=== PATIENT | female | born 1955 | race Caucasian/White ===

== ENCOUNTER 2016-09-23 00:27 | Emergency (ER) | payer MEDICAID ==
[2016-09-23] MEDS ORDERED: ONDANSETRON 4 MG TAB.RAPDIS PO ONE (02:27)
[2016-09-23] MEDS ORDERED: PREDNISONE 20 MG TABLET PO ONE (02:27)
[2016-09-23] MEDS ORDERED: MORPHINE SULFATE 10 MG/ML INJ IM ONE (02:27)
--- NOTE | 2016-09-23 02:31 | ER Document Report ---
ED Neck/Back Problem - General Chief Complaint: Back Injury Stated Complaint: BACK PAIN Time Seen by Provider: 09/23/16 02:12 Notes: Patient is a 60-year-old female comes emergency department for chief complaint of pain in her back, she states that 2 days ago she stepped wrong and felt a pull and she has had increasing sharp pains in her lower back with radiation mainly down her right leg and occasionally down the left. She has a known history of spinal stenosis, herniated disks, she has had a previous MRI. She takes no pain medications, she does not have diabetes, she denies any immunocompromised condition. She denies any IV drug abuse, any fever, she denies any bowel or bladder incontinence, she denies inability to urinate, she denies any impact injury. TRAVEL OUTSIDE OF THE [place] IN LAST 30 DAYS: No - Related Data Allergies/Adverse Reactions: No Known Allergies Allergy (Verified 09/19/12 10:53) Past Medical History - General Information source: Patient - Social History Smoking Status: Never Smoker Drug Abuse: None Lives with: Family Family History: Reviewed & Not Pertinent Patient has suicidal ideation: No Patient has homicidal ideation: No - Past Medical History Cardiac Medical History: Reports: Hx Hypertension Denies: Hx Coronary Artery Disease, Hx Heart Attack Pulmonary Medical History: Denies: Hx Asthma, Hx Bronchitis, Hx COPD, Hx Pneumonia Neurological Medical History: Denies: Hx Cerebrovascular Accident, Hx Seizures Renal/ Medical History: Denies: Hx Peritoneal Dialysis Musculoskeltal Medical History: Reports Hx Arthritis - Back and Knees Surgical Hx: Negative Past Surgical History: Denies: Hx Hysterectomy - Immunizations Hx Diphtheria, Pertussis, Tetanus Vaccination: Yes Review of Systems - Review of Systems Constitutional: No symptoms reported EENT: No symptoms reported Cardiovascular: No symptoms reported Respiratory: No symptoms reported Gastrointestinal: No symptoms reported Genitourinary: No symptoms reported Female Genitourinary: No symptoms reported Musculoskeletal: See HPI Skin: No symptoms reported Hematologic/Lymphatic: No symptoms reported Neurological/Psychological: No symptoms reported Physical Exam - Vital signs Vitals: Temp Pulse Resp BP Pulse Ox 98.1 F 70 16 174/84 H 97 09/23/16 00:38 09/23/16 00:38 09/23/16 00:38 09/23/16 00:38 09/23/16 00:38 Interpretation: Normal - General General appearance: Alert, Anxious - patient sitting awkwardly on the bed, does appear to be in some pain - HEENT Head: Normocephalic, Atraumatic Eyes: Normal Pupils: PERRL - Respiratory Respiratory status: No respiratory distress Chest status: Nontender Breath sounds: Normal Chest palpation: Normal - Cardiovascular Rhythm: Regular. No: Tachycardia Heart sounds: Normal auscultation, S1 appreciated, S2 appreciated Murmur: No - Abdominal Inspection: Normal Distension: No distension Bowel sounds: Normal Tenderness: Nontender. No: Tender, Guarding Organomegaly: No organomegaly - Back Back: Tender - Bilateral lumbar paraspinal tenderness on exam, no midline tenderness, no saddle anesthesia, positive straight leg raise especially on the right, normal strength, normal distal neurovascular exam. - Extremities General upper extremity: Normal inspection, Nontender, Normal color, Normal ROM , Normal temperature General lower extremity: Normal inspection, Nontender, Normal color, Normal ROM , Normal temperature, Normal weight bearing. No: Ally's sign - Neurological Neuro grossly intact: Yes Cognition: Normal Orientation: AAOx4 Vani Coma Scale Eye Opening: Spontaneous Vani Coma Scale Verbal: Oriented [place] Coma Scale Motor: Obeys Commands Vani Coma Scale Total: 15 Speech: Normal Motor strength normal: LUE, RUE, LLE, RLE Sensory: Normal - Skin Skin Temperature: Warm Skin Moisture: Dry Skin Color: Normal Course - Re-evaluation Re-evalutation: Patient with positive straight leg raise, worse on the right, has significant lower back tenderness in the paraspinal muscles, appears to be in pain. no neurological deficits. Patient already has a history of herniated lumbar disks. Treating symptomatically, recommended follow-up with primary and potential referral to spinal specialist, discussed return precautions in detail , patient states understanding and agreement. - Vital Signs Vital signs: Temp Pulse Resp BP Pulse Ox 97.4 F 62 14 167/99 H 98 09/23/16 02:45 09/23/16 02:45 09/23/16 02:45 09/23/16 02:45 09/23/16 02:45 Discharge - Discharge Clinical Impression: Lower back pain Qualifiers: Chronicity: acute Back pain laterality: bilateral Sciatica presence: with sciatica Sciatica laterality: sciatica of right side Qualified Code(s): M54.41 - Lumbago with sciatica, right side Condition: Stable Disposition: HOME, SELF-CARE Additional Instructions: Examination is consistent with likely herniated disc and sciatica. Take the medications as prescribed, take the stool softener if you take the Percocet, rest, apply heat to your lower back. Avoid carbohydrates while taking prednisone as this can cause weight gain. Follow-up with your primary care for additional management. Return to emergency department for any concerning or worsening symptoms. Prescriptions: Docusate Sodium [Colace 100 mg Capsule] 100 mg PO DAILY #30 capsule Oxycodone HCl/Acetaminophen [Percocet 5-325 mg Tablet] 1 - 2 tab PO Q4H PRN #20 tablet PRN Reason: Prednisone [Deltasone 10 mg Tablet] 10 mg PO ASDIR PRN #21 tablet PRN Reason: Forms: Elevated Blood Pressure Referrals: SRIDHAR JUAREZ MD [Primary Care Provider] - Follow up in 3-5 days
[2016-09-23 02:56] VITALS: BP 167/99
== END 2016-09-23 02:59 | disposition home or self-care (01) ==
LOC: ER 00:27
DX: M54.41 Lumbago with sciatica, right side (principal); M48.00 Spinal stenosis, site unspecified; I10 Essential (primary) hypertension
CPT/HCPCS: 99283; 96372; S0119; J2270; J7512

== ENCOUNTER 2017-07-19 09:03 | Day surgery (SDC) | payer MEDICAID ==
[~2017-07-19 09:03] MED LIST: KETOROLAC TROMETHAMINE 0.45% 4 DROP/0.4 ML DROPERETTE OD PRN
[2017-07-19] MEDS: TROPICAMIDE 1% OPH SOLN 3 ML OD PRN ×3 (10:01→10:22)
[2017-07-19] MEDS: CYCLOPENTOLATE 0.2%/PHENYLEPHRINE 1% OPH SOLN 2 ML OD PRN ×3 (10:01→10:22)
[2017-07-19] MEDS: BESIFLOXACIN HCL 0.6% OPH SUSP 5 ML BOTTLE OD PRN ×4 (10:02→10:57)
[2017-07-19] MEDS: TETRACAINE HCL 0.5% OPH SOLN 0.6 ML DROPERETTE OD PRN ×2 (10:02→10:24)
[2017-07-19] MEDS ORDERED: MIDAZOLAM 2 MG/2 ML INJ ONE (10:10)
[2017-07-19] MEDS ORDERED: FENTANYL CITRATE INJ/PF 100 MCG/2 ML AMPUL ONE (10:10)
[2017-07-19] MEDS: BUPIVACAINE HCL 0.75% INJ/PF (7.5 MG/1 ML) 10 ML SDV OD PRN ×2 (10:31)
[2017-07-19] MEDS: LIDOCAINE 4% INJ/PF (40 MG/ML) 5 ML AMPUL OD PRN ×2 (10:31)
[2017-07-19] MEDS: CHONDR SU A NA/HYALUR INTRAOC KIT (SURGICARE) ONE ×2 (10:44)
[2017-07-19] MEDS: LIDOCAINE 1% INJ-PF (10 MG/ML) 30 ML SDV ONE ×2 (10:44)
[2017-07-19] MEDS: EPINEPHRINE INJ/PF 1 MG/1 ML AMPULE ONE ×2 (10:44)
--- NOTE | 2017-07-19 11:19 | [facility] DISCHARGE SUMMARY E ---
[facility] Discharge Summary NAME: ROSELYN GARDNER AGE: 61Y ADMITTED: 07/19/2017 DISCHARGED: 07/19/2017 PREOPERATIVE DIAGNOSIS: Cataract, right eye. POSTOPERATIVE DIAGNOSIS: Cataract, right eye. HOSPITAL COURSE: The patient is a 61-year-old lady who underwent uneventful cataract extraction with intraocular lens implant, right eye, on 07/19/2017. She will be discharged to home. She was instructed to resume preoperative medications, take Tylenol as needed for discomfort, to keep her eye shielded, to use Durezol, ketorolac, and Vigamox at 3 p.m. and 8 p.m., and to followup in my office in 1 day. DICTATING PHYSICIAN: TAVIA GRAJEDA M.D. [id number] PHY#: [id number] ID: [id number] JOB#: [id number] ACCT: [id number] cc:TAVIA GRAJEDA M.D. >
--- NOTE | 2017-07-19 11:19 | [facility] OPERATIVE REPORT E ---
[facility] Operative Report NAME: ROSELYN GARDNER AGE: 61Y DATE OF SURGERY: 07/19/2017 ROOM: PREOPERATIVE DIAGNOSIS: Cataract, right eye. POSTOPERATIVE DIAGNOSIS: Cataract, right eye. PROCEDURE PERFORMED: Phacoemulsification with posterior chamber intraocular lens, right eye. SURGEON: Lisa Grajeda MD ANESTHESIA: Topical with MAC. INDICATIONS FOR SURGERY: Difficulty reading road signs and glare at night. Best corrected visual acuity 20/50. PROCEDURE: The patient was brought to the operating room and placed on the operative table. Following tetracaine drops, topical anesthesia was administered. This consisted of instrument wipe pledgets soaked in a solution of 4% Xylocaine mixed with 0.75% Marcaine in a 1:2 ratio. A 2 x 1 cm pledget was placed in the superior fornix. A 1 x 1 cm pledget was placed in the inferior fornix. The eye was patched shut for 5 minutes. The patch was removed. The eye was sterilely prepped and draped in the usual manner. Lid speculum was placed in the eye. The pledgets were removed. 4-0 black silk sutures were placed around the superior and the inferior rectus muscles to be used as traction. A conjunctival peritomy was made at the 10 o'clock position. Hemostasis was obtained with bipolar cautery. A posterior limbal groove was created using a crescent knife and dissected anteriorly towards the cornea. A sharp point blade was used to create a paracentesis site at the 2 o'clock position. A 2.4 mm keratome was used to enter the anterior chamber through the groove. Viscoelastic was injected into the anterior chamber. An anterior capsulotomy was performed using Utrata forceps in a capsulorrhexis fashion. Hydrodissection and hydrodelineation were performed. Phacoemulsification was performed in [id number] technique. A total of 3.46 CDE phaco time was used. Following this, the I/A unit was used to remove residual cortex. Viscoelastic was injected into the capsular bag. Intraocular lens model SN60WF, 28.5 diopters, serial number [id number] was placed in the capsular bag. The I/A unit was used to remove residual viscoelastic. The wound was seen to be watertight under high and low pressure, and no sutures were placed. The intraocular lens was well centered. The pressure was adjusted in the eye to normal pressure. The 4-0 black silk sutures and lid speculum were removed. The eye was shielded after Besivance drops were placed. The patient tolerated the procedure well and was sent to the recovery room in good condition. DICTATING PHYSICIAN: LISA GRAJEDA M.D. [id number] PHY#: [id number] ID: [id number] JOB#: [id number] ACCT: [id number] cc:LISA GRAJEDA M.D. >
== END 2017-07-19 11:42 | disposition home or self-care (01) ==
LOC: SC 09:03
PROVIDERS: ATTEND Ophthalmology
PROC: 08RJ3JZ Replacement of Right Lens with Synthetic Substitute, Percutaneous Approach (ICD-10-PCS; principal; 2017-07-19 11:00)
DX: H25.13 Age-related nuclear cataract, bilateral (principal); I10 Essential (primary) hypertension; E03.9 Hypothyroidism, unspecified; M19.90 Unspecified osteoarthritis, unspecified site; H40.033 Anatomical narrow angle, bilateral; H35.3131 Nonexudative age-related macular degeneration, bilateral, early dry stage; E66.9 Obesity, unspecified; Z79.899 Other long term (current) drug therapy; Z68.41 Body mass index [BMI] 40.0-44.9, adult
CPT/HCPCS: 66984; V2632; J2250; J3490 ×6; J0171; J3010; 142

== ENCOUNTER 2017-08-09 11:02 | Day surgery (SDC) | payer MEDICAID ==
[~2017-08-09 11:02] MED LIST changes: +BUPIVACAINE HCL 0.75% INJ/PF (7.5 MG/1 ML) 10 ML SDV ONE; +BUPIVACAINE HCL 0.75% INJ/PF (7.5 MG/1 ML) 10 ML SDV OS PRN; +CHONDR SU A NA/HYALUR INTRAOC KIT (SURGICARE) ONE; +EPINEPHRINE INJ/PF 1 MG/1 ML AMPULE ONE; -KETOROLAC TROMETHAMINE 0.45% 4 DROP/0.4 ML DROPERETTE OD PRN; +KETOROLAC TROMETHAMINE 0.45% 4 DROP/0.4 ML DROPERETTE OS PRN; +LIDOCAINE 1% INJ-PF (10 MG/ML) 30 ML SDV ONE; +LIDOCAINE 4% INJ/PF (40 MG/ML) 5 ML AMPUL OS PRN
[2017-08-09] MEDS: TETRACAINE HCL 0.5% OPH SOLN 0.6 ML DROPERETTE OS PRN ×2 (11:19→11:56)
[2017-08-09] MEDS: CYCLOPENTOLATE 0.2%/PHENYLEPHRINE 1% OPH SOLN 2 ML OS PRN ×3 (11:20→11:52)
[2017-08-09] MEDS: TROPICAMIDE 1% OPH SOLN 3 ML OS PRN ×3 (11:20→11:52)
[2017-08-09] MEDS: BESIFLOXACIN HCL 0.6% OPH SUSP 5 ML BOTTLE OS PRN ×3 (11:20→12:44)
[2017-08-09] MEDS ORDERED: FENTANYL CITRATE INJ/PF 100 MCG/2 ML AMPUL ONE (11:54)
[2017-08-09] MEDS ORDERED: MIDAZOLAM 2 MG/2 ML INJ ONE (11:54)
[2017-08-09] MEDS ORDERED: POVIDONE-IODINE 5% OPH PREP SOLN 30 ML ONE (12:20)
--- NOTE | 2017-08-09 12:54 | [facility] OPERATIVE REPORT E ---
[facility] Operative Report NAME: ROSELYN GARDNER AGE: 61Y DATE OF SURGERY: 08/09/2017 ROOM: PREOPERATIVE DIAGNOSIS: Cataract, left eye. POSTOPERATIVE DIAGNOSIS: Cataract, left eye. PROCEDURE PERFORMED: Phacoemulsification with posterior chamber intraocular lens, left eye. SURGEON: TAVIA GRAJEDA M.D. ANESTHESIA: Topical with MAC. INDICATIONS FOR SURGERY: Optical imbalance after cataract surgery in the right eye, glare at night. BEST CORRECTED VISUAL ACUITY: 20/50. DESCRIPTION OF PROCEDURE: The patient was brought to the operating room and placed on the operative table. Following tetracaine drops, topical anesthesia was administered. This consisted of instrument wipe pledgets soaked in a solution of 4% Xylocaine mixed with 0.75% Marcaine in a 1:2 ratio. A 2 x 1 cm pledget was placed in the superior fornix. A 1 x 1 cm pledget was placed in the inferior fornix. The eye was patched shut for 5 minutes. The patch was removed. The eye was sterilely prepped and draped in the usual manner. Lid speculum was placed in the eye. The pledgets were removed, 4-0 black silk sutures were placed around the superior and the inferior rectus muscles to be used as traction. A conjunctival peritomy was made at the 10 o'clock position. Hemostasis was obtained with bipolar cautery. A posterior limbal groove was created using a crescent knife and dissected anteriorly towards the cornea. A sharp point blade was used to create a paracentesis site at the 2 o'clock position. A 2.4 mm keratome was used to enter the anterior chamber through the groove. Viscoelastic was injected into the anterior chamber. An anterior capsulotomy was performed using Utrata forceps in a capsulorrhexis fashion. Hydrodissection and hydrodelineation were performed. Phacoemulsification was performed in [id number] technique. Total phaco time, 38 seconds. Following this, the I/A unit was used to remove residual cortex. Viscoelastic was injected into the capsular bag. Intraocular lens Model SN60WF, 28.5 diopters, serial number [id number] was placed in the capsular bag. The I/A unit was used to remove residual viscoelastic. The wound was seen to be watertight under high and low pressure, and no sutures were placed. The intraocular lens was well centered. The pressure was adjusted in the eye to normal pressure. The 4-0 black silk sutures and lid speculum were removed. The eye was shielded after Besivance drops were placed. The patient tolerated the procedure well and was sent to the recovery room in good condition. DICTATING PHYSICIAN: TAVIA GRAJEDA M.D. [id number] [id number] PHY#: [id number] ID: [id number] JOB#: [id number] ACCT: [id number] cc:TAVIA GRAJEDA M.D. >
--- NOTE | 2017-08-09 13:04 | [facility] DISCHARGE SUMMARY E ---
[facility] Discharge Summary NAME: ROSELYN GARDNER AGE: 61Y ADMITTED: 08/09/2017 DISCHARGED: 08/09/2017 HOSPITAL COURSE: The patient is an 61-year-old lady who underwent uneventful cataract extraction with intraocular lens implant, left eye, on 08/09/2017. She will be discharged to home. She was instructed to resume preoperative medications, to take Tylenol as needed for discomfort, to keep her eye shielded, to use Durezol, Vigamox, and ketorolac at 3:00 p.m. and 8:00 p.m., and to follow up in my office in 1 day. DICTATING PHYSICIAN: TAVIA GRAJEDA M.D. [id number] PHY#: [id number] ID: [id number] JOB#: [id number] ACCT: [id number] cc:TAVIA GRAJEDA M.D. >
== END 2017-08-09 13:35 | disposition home or self-care (01) ==
LOC: SC 11:02
PROVIDERS: ATTEND Ophthalmology
DX: H25.12 Age-related nuclear cataract, left eye (principal); Z96.1 Presence of intraocular lens; E07.9 Disorder of thyroid, unspecified; I20.9 Angina pectoris, unspecified
CPT/HCPCS: 66984; V2632; J2250; J3490 ×7; J0171; J3010; 142

== ENCOUNTER 2018-11-05 17:20 | Emergency (ER) | payer MEDICARE, MEDICAID ==
[2018-11-05 17:28] VITALS: BP 159/88
[2018-11-05] MEDS ORDERED: ACETAMINOPHEN 325 MG TABLET PO ONE (18:24)
[2018-11-05] MEDS ORDERED: CYCLOBENZAPRINE HCL 10 MG TABLET PO ONE (18:24)
[2018-11-05] MEDS ORDERED: LIDOCAINE 5% (700 MG) TRANSDERMAL ADH..PATCH TP ONE (18:24)
--- NOTE | 2018-11-05 18:29 | ER Document Report ---
HPI - HPI Patient complains to provider of: Back pain Time Seen by Provider: 11/05/18 17:58 Pain Level: 3 Context: Patient is a morbidly obese 63-year-old female presents to the emergency department with lower back left buttocks and left lower extremity pain. Patient states she does have a history of Spondylosis and sciatic nerve pain. Patient states she has had generalized left buttocks and lower extremity pain for the last couple of months. States is gotten worse in the last 2 days. Patient's denying any urinary retention, denies any loss of bowel or bladder. Patient's denying any numbness or tingling in any extremity. - CONSTITUTIONAL Constitutional: DENIES: Fever, Chills - NEURO Neurology: DENIES: Headache, Weakness, Vision blurred, Dizzinesss / Vertigo - CARDIOVASCULAR Cardiovascular: DENIES: Chest pain - RESPIRATORY Respiratory: DENIES: Trouble Breathing, Coughing - GASTROINTESTINAL Gastrointestinal: DENIES: Abdominal Pain, Black / Bloody Stools - URINARY Urinary: DENIES: Dysuria, Urgency, Frequency - REPRODUCTIVE Reproductive: DENIES: : - MUSCULOSKELETAL Musculoskeletal: REPORTS: Extremity pain - left leg Past Medical History - General Information source: Patient - Social History Smoking Status: Never Smoker Family History: Reviewed & Not Pertinent Patient has suicidal ideation: No Patient has homicidal ideation: No - Past Medical History Cardiac Medical History: Reports: Hx Hypertension Denies: Hx Coronary Artery Disease, Hx Heart Attack Pulmonary Medical History: Denies: Hx Asthma, Hx Bronchitis, Hx COPD, Hx Pneumonia Neurological Medical History: Denies: Hx Cerebrovascular Accident, Hx Seizures Renal/ Medical History: Denies: Hx Peritoneal Dialysis GI Medical History: Denies: Hx Hepatitis, Hx Hiatal Hernia, Hx Ulcer Musculoskeletal Medical History: Reports Hx Arthritis Psychiatric Medical History: Reports: Hx Depression Infectious Medical History: Denies: Hx Hepatitis Past Surgical History: Reports: Hx Abdominal Surgery - GBP. Denies: Hx Hysterectomy, Hx Mastectomy, Hx Open Heart Surgery, Hx Pacemaker - Immunizations Hx Diphtheria, Pertussis, Tetanus Vaccination: Yes Vertical Provider Document - CONSTITUTIONAL Agree With Documented VS: Yes Notes: GENERAL: Alert, interacts well. No acute distress. HEAD: Normocephalic, atraumatic. EYES: Pupils equal, round, and reactive to light. Extraocular movements intact. ENT: Oral mucosa moist, tongue midline. NECK: Full range of motion. Supple. Trachea midline. LUNGS: Clear to auscultation bilaterally, no wheezes, rales, or rhonchi. No respiratory distress. HEART: Regular rate and rhythm. No murmur ABDOMEN: Soft, non-tender. Non-distended. Bowel sounds present in all 4 quadrants. EXTREMITIES: Moves all 4 extremities spontaneously. No edema, normal radial and dorsalis pedis pulses bilaterally. No cyanosis. 5 out of 5 strength all 4 extremities BACK: no cervical, thoracic, lumbar midline tenderness. No saddle anesthesia, normal distal neurovascular exam. Pain is left paraspinal radiating into the left buttocks and left lower extremity hamstring region. NEUROLOGICAL: Alert and oriented x3. Normal speech. cranial nerves II through XII grossly intact PSYCH: Normal affect, normal mood. SKIN: Warm, dry, normal turgor. No rashes or lesions noted. - INFECTION CONTROL TRAVEL OUTSIDE OF THE [place] IN LAST 30 DAYS: No Course - Re-evaluation Re-evalutation: 11/05/18 18:27 Presentation of a well appearing patient complaining of acute on chronic back pain. No rapid progression of symptoms, systemic symptoms including fevers, chills, weight loss, history of recent bacterial infection, bilateral symptoms, numbness, weakness, difficulty walking, urinary retention or bowel incontinence, personal history of cancer, immunosuppression, diabetes, known AAA, or history of IV drug use. Exam is without point tenderness over vertebral bodies, pulsatile abdominal mass, and patient has symmetric and intact lower extremity strength, sensation, and reflexes without clonus. 2+ symmetric medial malleolar and dorsalis pedis pulses Based on history and physical, I have a very low suspicion of a concerning etiology of pain including epidural compression syndrome, spinal infection, transverse myelitis, malignancy, abdominal aortic aneurysm, renal colic, acute lower extremity claudication, neurogenic claudication, ankylosing spondylitis, or other intra-abdominal process. Due to absence of concerning risk factors in history and physical as well as absence of rapidly progressive, severe, or bilateral symptoms, will defer imaging at this point. Plan to manage conservatively with outpatient analgesia, analgesia, and physical therapy. - Acetaminophen 1000 q 4 + ibuprofen 800 q 6 - Continue normal daily activities as tolerated by pain - Provide with standard musculoskeletal back pain exercise instructions - Instruct to follow up with primary care provider if symptoms not improving - Provide careful return precautions and concerning symptoms to watch for. - Vital Signs Vital signs: Temp Pulse Resp BP Pulse Ox 97.9 F 71 20 159/88 H 97 11/05/18 17:27 11/05/18 17:27 11/05/18 17:27 11/05/18 17:27 11/05/18 17:27 Discharge - Discharge Clinical Impression: Left sciatic nerve pain Condition: Stable Disposition: HOME, SELF-CARE Instructions: Warm Packs ([facility]), Low Back Pain ([facility]), Sciatica ([facility]) Additional Instructions: You have been seen in the Emergency Department (ED) today for back pain. Your workup and exam have not shown any acute abnormalities and you are likely suffering from muscle strain or possible problems with your discs, but there is no treatment that will fix your symptoms at this time. Please take the Flexeril that has been prescribed as directed. You should also purchase a local lidocaine cream such as "aspercreme with lidocaine" and use per bottle instructions to the affected area. Apply heat to the area as often as you are able. Continue to keep active and avoid prolonged periods of bed rest. Please follow up with your doctor as soon as possible regarding today's ED visit and your back pain. Return to the ED for worsening back pain, fever, weakness or numbness of either leg, or if you develop either (1) an inability to urinate or have bowel movements, or (2) loss of your ability to control your bathroom functions (if you start having "accidents"), or if you develop other new symptoms that concern you.concern you. Prescriptions: Cyclobenzaprine HCl [Flexeril 5 mg Tablet] 5 mg PO TID #15 tablet Referrals: SRIDHAR JUAREZ MD [Primary Care Provider] - Follow up as needed CHASIDY RUCKER MD [ACTIVE STAFF] - Follow up as needed
== END 2018-11-05 18:34 | disposition home or self-care (01) ==
LOC: ER 17:20
DX: M54.32 Sciatica, left side (principal); I10 Essential (primary) hypertension
CPT/HCPCS: 99283; A9270 ×2